=== PATIENT | female | born 1985 | race Caucasian/White ===

== ENCOUNTER 2017-03-30 03:08 | Emergency (ER) | payer SELFPAY ==
[~2017-03-30] VITALS: Ht 162.6 cm; Wt 104.3 kg
[2017-03-30 03:19] VITALS: BP 137/101
--- OUTSIDE RECORDS SUMMARY | 2017-03-30 03:25 | External Medical Summary Rpt | CCD ---
Author Author OREL Address Unknown Phone [email or web address] Purpose Continuity of Care Document - through 2016
--- OUTSIDE RECORDS SUMMARY | 2017-03-30 03:25 | External Medical Summary Rpt | CCD ---
Author Author [employer] Organization [employer] Address Unknown Phone Unavailable Purpose Continuity of Care Document - through 2016
--- OUTSIDE RECORDS SUMMARY | 2017-03-30 03:25 | External Medical Summary Rpt | CCD ---
Demographics Preferred Language Tongan Marital Status Unknown Christian Affiliation Unknown Race Unknown Ethnic Group Unknown Author Author , ROEL SEVILLA Address Unknown Phone Immunization No patient found.
--- OUTSIDE RECORDS SUMMARY | 2017-03-30 03:25 | External Medical Summary Rpt | CCD ---
Author Author ROEL Address Unknown Phone [email or web address] Purpose Continuity of Care Document - through 2016
--- OUTSIDE RECORDS SUMMARY | 2017-03-30 03:25 | External Medical Summary Rpt | CCD ---
Demographics Preferred Language Romanian Marital Status Unknown Yazidi Affiliation Unknown Race Unknown Ethnic Group Unknown Author Author , ROEL SEVILLA Address Unknown Phone Immunization No patient found.
[2017-03-30] MEDS ORDERED: WARFARIN SOD5 MG PO (03:31)
[2017-03-30] MEDS ORDERED: DEPAKOTE 500MG500 MG PO (03:31)
[2017-03-30] MEDS ORDERED: TYSABRI20 MG/ML IV (03:32)
[2017-03-30] MEDS ORDERED: PROTONIX 40MG T40 MG PO (03:32)
[2017-03-30] MEDS ORDERED: CYMBALTA60 MG PO (03:33)
[2017-03-30] MEDS ORDERED: ZANAFLEX4 M3 PO (03:33)
[2017-03-30] MEDS ORDERED: ZOFRAN ODT4 MG PO (03:34)
[2017-03-30] MEDS ORDERED: IMITREX ST4 MG/0.5 M SC (03:34)
--- NOTE | 2017-03-30 04:01 | Emergency Room Report ---
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 N Clinical Suspician of Infection? N Mental Status: 1 - Regular (Normal Baseline) Sepsis Risk:Possible Sepsis Risk Have you (or family members/close friends) recently traveled outside the [place]? N If Yes, where/when: Have you had exposure to infectious disease within the past month? N TB? Other? Specify: Source patient, RN notes reviewed, family, old records Exam Limitations no limitations Comment pt with abd pain worse tonight with hx of recent gb surg and was kicked in abd 3 days ago - no bleeding - pt reports clotting disorder on coumadin Cardiac Chest Pain Chest pain indicative of cardiac No Timing/Duration this evening Severity moderate ALLERGIES Coded Allergies: Penicillins (03/30/17) carbamazepine (From TEGRETOL) (03/30/17) clindamycin (03/30/17) lamotrigine (From LAMICTAL) (03/30/17) levetiracetam (From KEPPRA) (03/30/17) Home Medications Reported Medications WARFARIN SOD (Warfarin 5MG) 5 MG PO DAILY Divalproex Sodium (Depakote) 500 MG PO BID Natalizumab (Tysabri) 20 MG IV [id number] Pantoprazole Sodium (Protonix 40MG TAB) 40 MG PO DAILY DULOXETINE HCL (Cymbalta 60MG) 60 MG PO DAILY TIZANIDINE HCL (Zanaflex) 4 MG PO BID Ondansetron (Zofran 4MG Odt) 4 MG PO Q6HP PRN NAUSEA AND VOMITING Sumatriptan Succinate (Imitrex) 4 MG SC DAILY History Medical History General CAD? No Angina: No CA: No Hypertension? No Hyperlipidemia? No CHF? No DVT? Yes PE? Yes COPD? No Asthma? No Anemia? No GERD? No Gastric ulcers? Yes GI Bleed? Yes Hernia? No Thyroid Problems? Yes Hypothyroidism? No CVA? No Seizures? Yes Diabetes? No Renal Insuffiency? No End Stage Renal Disease? No UTI? Yes Stones? Yes BPH? No GB Disease: No Nephritic Syndrome? No Asplenia? No Hepatitis? No Sickle Cell Disease? No Arthritis? Yes Migraines? Yes Cataracts? No Glaucoma? No MRSA? No HIV? No TB? No Anxiety? No Depression? Yes Cancer? Yes Site: CERVICAL More? Yes Additional hx: GRAVES MS EPILEPSY FACTOR 5 Immunization Hx DT/Tetanus 1-4 Years Ago Surgical Hx Previous Surgery?Y LAP KODAK APPEDECTOMY TONSILECTOMY RIGHT KNEE ACL REPAIR [employer] LAB[employer]ER Hx LMP 1 Month Ago Social History Smoking Hx Smoker: Current Every Day Smoker Tobacco: Yes Type Cigarettes Packs/day < 1 Pack Are you/the child exposed to second-hand smoke: No Alcohol Alcohol: No Drugs none Review of Systems All Other Systems Reviewed and Negative Constitutional denies fever Eyes denies drainage ENT denies: ear discharge, epistaxis, throat pain. Respiratory denies cough, denies shortness of breath, denies wheezing Cardiovascular denies chest pain, denies syncope Gastrointestinal see HPI, abdominal pain, denies diarrhea, denies nausea, denies vomiting Genitourinary denies: dysuria, frequency, hesitancy, hematuria. Musculoskeletal denies back pain, denies joint pain, denies joint swelling, denies neck pain Skin denies rash Psychiatric/Neurological denies headache, denies seizure Physical Exam Vital Signs Vital Signs Date Time Temp Pulse Resp B/P Pulse O2 O2 Flow FiO2 Ox Delivery Rate 03/30 0319 98.3 97 22 137/101 97 - WBC >12,000 or <4,000 or 10% bands? 2 or more SIRS Criteria Met? B/P:137/101 MAP:113 Creatinine >2.0? UA output<0.5ml/kg/hr for 2 hrs? Platelet count >100,000? Lactate >2.0mmol/1? INR >1.2 or PTT > than 60 sec? Evidence of Organ Dysfunction? Provider documented clinical suspician of infection? N Sepsis Criteria Count: 2 Sepsis Risk: Possible Sepsis Risk General Appearance no apparent distress Eye Exam - bilateral eye PERRL, bilateral eye EOMI Ear, Nose, Throat normal ENT inspection Neck supple Respiratory Status No: respiratory distress. Cardiovascular regular rate/rhythm Gastrointestinal soft, no organomegaly, no pulsatile mass, no guarding, no rebound, tenderness Extremities normal inspection Strength 4 Upper Ext (L), 4 Upper Ext (R), 4 Lower Ext (L), 4 Lower Ext (R) Neurologic alert, hand kiss setter II-XII nml as tested, no motor/sensory deficits Reflexes Reflexes normal No Mental status normal mood/affect Skin intact Medical Decision Making LABS/Meds/Orders Pt receiving controlled substance in ED? No Results/Orders Laboratory Tests 03/30/17 0350: Sodium 140, Potassium 4.2, Chloride 105, Carbon Dioxide 24, BUN 10, Creatinine 0.8, Estimated Creat Clear 165, Estimated GFR (MDRD) 83, Glucose 280 H, Calcium 9.1, Total Bilirubin 0.2, AST 15, ALT 31, Alkaline Phosphatase 97, Total Protein 7.3, Albumin 3.9, Globulin 3.4 H, Albumin/Globulin Ratio 1.1, Amylase 35, Lipase 148, PT 10.0, INR 0.93, WBC 6.1, RBC 4.87, Hgb 14.6, Hct 43.9, MCV 90.3, RDW 12.5, Plt Count 320, MPV 7.3 L, Gran % 65.1, Gran # 4.0, Lymphocytes % 26.5 , Monocytes % 6.1, Eosinophils % 1.6, Basophils % 0.7, Lymphocytes # 1.6, Monocytes # 0.4, Eosinophils # 0.1, Basophils # 0.0, PUBS MCHC 33.3, MCH 30.0 Current Medication Orders Sig/Patricia Start time Last Medication Dose Route Stop Time Status Admin Sodium Chloride 10 ML PRN PRN 03/30 400 DCD IV 03/31 356 Orders Procedure Date/time Status DIET-NOTHING BY MOUTH 03/30 B Active URINE 03/30 413 Complete LIPASE 03/30 402 Complete COMPLETE METABOLIC PANEL 03/30 402 Complete CBC WITH AUTO DIFF 03/30 402 Complete AMYLASE 03/30 402 Complete IV SALINE LOCK 03/30 357 Active PROTHROMBIN TIME 03/30 357 Complete Departure Departure Time of Disposition 0515 Disposition Against Medical Advice Clinical Impression Primary Impression: Abdominal pain Qualifiers: Abdominal location: generalized Qualified Code: R10.84 - Generalized abdominal pain Condition STABLE Patient Instructions DI for Abdominal Pain-Adult Additional Instructions see pcp of choice Discharge Counseling Counseled pt/family regarding diagnosis, test results ED Critical Care [place] 6065
[2017-03-30 04:07] LABS: HEMOGLOBIN 14.6 g/dL (12.2-16.2); LYMPH # 1.6 K/mm3 (0.7-4.5); LYMPH % 26.5 % (10-50.0)
== END 2017-03-30 05:19 | disposition left against medical advice (07) ==
LOC: ER 03:08
PROVIDERS: Emergency Medicine
DX: R10.84 Generalized abdominal pain (principal); R56.9 Unspecified convulsions; F17.210 Nicotine dependence, cigarettes, uncomplicated; Z88.0 Allergy status to penicillin; Z88.8 Allergy status to other drugs, medicaments and biological substances